=== PATIENT | male | born 1975 | race Caucasian/White ===

== ENCOUNTER 2017-09-20 08:13 | Emergency (ER) | payer SELFPAY ==
[~2017-09-20] VITALS: Ht 170.2 cm; Wt 85.0 kg
[2017-09-20 08:40] VITALS: BP 130/67
== END 2017-09-20 08:53 | disposition home or self-care (01) ==
LOC: EMS 08:15
DX: F10.129 Alcohol abuse with intoxication, unspecified (principal); F17.210 Nicotine dependence, cigarettes, uncomplicated; Y90.9 Presence of alcohol in blood, level not specified
CPT/HCPCS: 99283